=== PATIENT | male | born 1970 | race Two or more races ===

== ENCOUNTER 2025-04-21 20:11 | Emergency (ER) | payer OTHER ==
[~2025-04-21] VITALS: Ht 167.6 cm; Wt 70.3 kg
[2025-04-21] MEDS ORDERED: ORPHENADRINE CITRATE 30 MG/ML AMPUL IM ONE (22:45)
[2025-04-21] MEDS ORDERED: ACETAMINOPHEN 500 MG GEL..CAP PO ONE (22:45)
[2025-04-22] MEDS ORDERED: ORPHENADRINE CITRATE 30 MG/ML AMPUL ONE (00:03)
[2025-04-22] MEDS ORDERED: ACETAMINOPHEN 500 MG GEL..CAP PO ONE (00:04)
== END 2025-04-22 00:30 | disposition home or self-care (01) ==
LOC: ER 20:12
DX: S01.82XA Laceration with foreign body of other part of head, initial encounter (principal); W01.0XXA Fall on same level from slipping, tripping and stumbling without subsequent striking against object, initial encounter; Y93.89 Activity, other specified; Y92.018 Other place in single-family (private) house as the place of occurrence of the external cause